=== PATIENT | female | born 1970 | race African-American/Black ===

== ENCOUNTER 2017-01-03 08:34 | Emergency (ER) | payer OTHER ==
[2017-01-03 08:46] VITALS: BMI 37.8
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
[2017-01-03 10:05] LABS: BASOPHIL 0.6 % (0-2.0); EOSINOPHIL 3.3 % (0-4.5); MCHC 33.4 g/dl (32.0-36.0); MEAN PLT VOLUME 9.8 fl (7.5-11.1); NEUTROPHILS 53.2 % (42.8-82.8); PLATELET COUNT 190 K/MM3 (134-434); RDW 12.3 % (11.6-15.6); WHITE BLOOD COUNT 5.8 K/mm3 (4.0-10.0)
[2017-01-03 10:34] LABS: ALBUMIN 3.8 g/dl (3.4-5.0); ANION GAP 10 (8-16); CALCIUM 9.1 mg/dL (8.5-10.1); CO2 27 mmol/L (21-32); SGOT/AST 13 U/L (15-37); SGPT/ALT 19 U/L (12-78)
[2017-01-03 10:39] LABS: ALK PHOS 67 U/L (45-117); BILIRUBIN,TOTAL 0.6 mg/dL (0.2-1.0); CREATININE 0.9 mg/dL (0.55-1.02); TOT PROT 7.6 g/dl (6.4-8.2); TROPONIN I < 0.02 ng/ml (0.00-0.05)
[2017-01-03 10:41] LABS: GLUCOSE,RANDOM 325 mg/dL (74-106)
[2017-01-03 12:10] LABS: HIV 1 AGp24 NEGATIVE
[2017-01-03 12:14] LABS: HIV 1 & 2 AB NEGATIVE
[2017-01-03 12:42] VITALS: BP 138/85; PULSE 65; TEMP 98.2
--- NOTE | 2017-01-06 17:19 | EKG ---
Test Reason : Blood Pressure : / mmHG Vent. Rate : 092 BPM Atrial Rate : 092 BPM P-R Int : 150 ms QRS Dur : 086 ms QT Int : 360 ms P-R-T Axes : 074 -15 055 degrees QTc Int : 445 ms NORMAL SINUS RHYTHM POSSIBLE LEFT ATRIAL ENLARGEMENT LEFT VENTRICULAR HYPERTROPHY ABNORMAL ECG NO PREVIOUS ECGS AVAILABLE Confirmed by LASHONDA PLUMMER MD ([id number]) on 01/06/2017 5:18:50 PM Referred By: Confirmed By:LASHONDA PLUMMER MD
== END 2017-01-03 12:20 | disposition home or self-care (01) ==
LOC: JER 08:34
DX: M79.604 Pain in right leg (principal); X50.9XXA Other and unspecified overexertion or strenuous movements or postures, initial encounter; Y93.F9 Activity, other caregiving; Y92.218 Other school as the place of occurrence of the external cause; Y99.0 Civilian activity done for income or pay; E11.9 Type 2 diabetes mellitus without complications; Z79.4 Long term (current) use of insulin; Z79.84 Long term (current) use of oral hypoglycemic drugs; I10 Essential (primary) hypertension
CPT/HCPCS: 36415; 71020-TC; 80053; 82550; 82553; 84484; 85025; 85379; 87389; 93005; 93010; 93971-TC; 99285-25